=== PATIENT | female | born 1945 | race Caucasian/White ===

== ENCOUNTER 2016-12-27 22:33 | Inpatient (IN) | payer OTHER ==
--- NOTE | ~2016-12-27 | US84 ---
[id number] [facility]. [facility] [address] [place], [place] [address] [id number] I MR#: [id number] Acc #: [id number] NAME: MALI RICHARD : 1945 SEX: F STUDY DATE/TIME: 12/28/2016 12:55 UNIT: C4B ROOM: [facility] STUDY DESCRIPTION: US LE Veins Complete Parminder Stdy Attending Physician: Robert Wagner M.D. Ordering Physician: Rosy Hickey M.D. Primary Care Physician: Freddy Peter M.D. MEDICAL IMAGING REPORT This report is preliminary unless electronic signature is present EXAM Bilateral lower extremity venous duplex DATE OF EXAMINATION 12/28/2016 CLINICAL HISTORY Bilateral lower extremity pain. Right lower extremity worse x4 months. FINDINGS On the right leg, there is phasic spontaneous flow with respiration seen of the common femoral, deep femoral, femoral, popliteal, anterior and posterior tibial, peroneal, saphenous veins. There is compressibility of the vein lumen of all the aforementioned vessels. On the left leg, there is phasic spontaneous flow with respiration seen of the common femoral, deep femoral, femoral, popliteal, anterior and posterior tibial, and saphenous veins. There is compressibility of the vein lumen of all the aforementioned vessels. IMPRESSION No evidence of a DVT of the right or left lower extremity on today's exam. Dictated by... Nikolai Rain M.D. THIS IS AN ELECTRONICALLY VERIFIED REPORT Nikolai Rain M.D. at 01/03/2017 7:25 AM NATALIIA/lacey TD: 12/28/2016 14:52 JOB #: [id number] MEDICAL IMAGING REPORT Page 1 of 1 COPY
--- NOTE | ~2016-12-27 | HP ---
Unit #: [id number] #: [id number] Patient: MALI RICHARD [id number] [facility]. [place] [address] [facility]. [place], [place] [address] [id number] I MR#: [id number] NAME: MALI RICHARD ROOM: 453 Age: 71 Sex: F Admission Date: 12/27/2016 : 1945 Attending Physician: Robert Wagner M.D. Primary Care Physician: Freddy Peter M.D. HISTORY AND PHYSICAL CHIEF COMPLAINT Jaw, neck and should blade tightness. HISTORY OF PRESENT ILLNESS This is a 71-year-old white female with past medical history of gastroesophageal reflux, valvular heart disease, hypertension, hyperlipidemia, osteoarthritis of her knees and heart arrhythmias. She follows with Dr. Peter. She presented to the ER on 12/27 after waking up with some jaw and neck tightness on 12/27 in the a.m. She then developed tightness in between her shoulder blades. She denies that this discomfort got any worse with movement or deep breathing. She had no radiating pain. No nausea. No vomiting. No shortness of breath; however, she was slightly diaphoretic. The pain was constant in nature. When she arrived to the emergency department, she received topical nitroglycerin that did help somewhat to relieve the pain but did not take it completely away. She reports to me she does have chronic palpitations at times due to heart arrhythmia; however, no arrhythmia was seen on telemetry review or EKG. She also reports that lately she has not been sleeping well. She does state that she sleeps with 2-3 pillows. She denies orthopnea, but the pillows are for her acid reflux. She cannot lie flat at night especially if she has eaten a meal. She denies any exertional pain but stated that "something does not feel right." Initial troponin, after presenting to the emergency room, was less than 0.05, and her EKG showed normal sinus rhythm with some Q waves present in the septal leads. Last EKG was in September of 2015, which was normal sinus rhythm. Apparently she had some palpitations, and in September of 2015, she had a Holter monitor, which was normal, and a two-D echo, which showed an EF of 55%, impaired relaxation, mild MR, mild TR, mild AR and normal RVSP. Also, of note, urinalysis done in the ER December 27 showed 3+ leukocytes, urobilinogen of 0.2 and WBC count of 25-50. A urine culture was sent and is pending. Chest x-ray on 12/27 was negative for any acute findings. The patient does tell me that she traveled in a car to [place], [place] back in August of 2016 and, since then, has been having right calf pain. No abnormalities seen on exam. PAST SURGICAL HISTORY None. HOME MEDICATIONS Unit #: [id number] #: [id number] Patient: MALI RICHARD 1. Omeprazole 20 mg daily. 2. MiraLAX as needed for constipation. 3. Irbesartan 150 mg daily. 4. Atenolol 12.5 mg daily. ALLERGIES No known allergies. FAMILY HISTORY Her mother had valvular heart disease and hypertension, and her father at the age of 68 from an VT and a stroke. He apparently had an aneurysm. 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 She is a retired manager surgery. She is and has 3 kids and grandkids. She is a never-smoker. Denies alcohol use. Denies illicit drug use. REVIEW OF SYSTEMS A 12-point review of systems was negative except as noted above in the HPI. PHYSICAL EXAMINATION GENERAL: She appears in no acute distress, is alert and oriented, cooperative. HEENT: Head is normocephalic, atraumatic. Pupils are equal, round and reactive to light and accommodation with extraocular movements intact. NECK: Supple with no JVD noted. No carotid bruits auscultated. LUNGS: Clear to auscultation. SPINE: Slight scoliosis. CARDIOVASCULAR: She is in a regular rate and rhythm with S1, S2 noted. She does have a 3/6 systolic ejection murmur heard best at the apex. EXTREMITIES: She is able to move all extremities. Pulses are palpable. No edema present. SKIN: Skin is warm, dry and pale. VITAL SIGNS: Temperature 98, heart rate 59, respirations 13, blood pressure 117/52. She is 81 kg. Her BMI is 29. DIAGNOSTIC TESTING IMAGING: Chest x-ray on 12/27, which was negative. CARDIOVASCULAR: EKG on 12/27 did show normal sinus rhythm with Q waves in the septal leads. LABORATORY STUDIES: Sodium 139, potassium 3.7, chloride 105, CO2 27, BUN 13, creatinine 0.9, glucose 98. WBC 3, platelet count 137, hemoglobin 12.6, hematocrit 37.6. Total cholesterol 162, triglycerides 41, LDL 101, HDL 53. Urinalysis was positive for 3+ leukocytes and WBCs. IMPRESSION 1. Angina. 2. History of hypertension. 3. Right calf pain. 4. Some valvular heart disease. 5. UTI. 6. Gastroesophageal reflux disease. 7. Abnormal EKG. Unit #: [id number] #: [id number] Patient: MALI RICHARD PLAN We will repeat her troponin and EKG. She has had 2 negative troponins in the ER. She was scheduled for a stress test today; however, her symptoms are concerning for angina, and her troponins have not been drawn 6 hours apart. We will hold off the stress test for now. She will be able to eat heart healthy diet, check a two-D echo to evaluate LV function and her valves. Start her on Lovenox 1 mg/kg b.i.d. We will check labs in the morning, keep her NPO after midnight and proceed with either a stress test or a cardiac cath tomorrow depending on her troponins. A STAT bilateral lower extremity ultrasound to rule out DVT due to her right calf pain. We will start Yosprala 40/81 mg daily for cardiac protection and gastroesophageal reflux disease. She will be admitted under cardiology to telemetry. Lipitor 40 mg will be added to her medications. Further plans status post testing results. Dictated by Yazmin Pruitt APRN for Arturo Najera TD: 12/28/2016 09:45 JOB #: [id number] HISTORY AND PHYSICAL Page 1 of 1 X X HISTORY AND PHYSICAL
--- NOTE | ~2016-12-27 | EKG ---
PATIENT: MALI RICHARD UNIT #: [id number] Ventricular Rate: 60 BPM Atrial Rate: 60 BPM P-R Interval: 156 ms QRS Duration: 76 ms Q-T Interval: 438 ms QTC Calculation(Bezet): 438 ms P [place]: 54 degrees Calculated R [place]: 36 degrees Calculated T [place]: 59 degrees Diagnosis Line: Normal sinus rhythm Diagnosis Line: Cannot rule out Septal infarct , age undetermined Diagnosis Line: Borderline Diagnosis Line: When compared with ECG of 23-SEP-2015 15:21, Diagnosis Line: No significant change was found Diagnosis Line: Confirmed by BERNADINE STRAUSS MD ([id number]) on 12/29/2016 Diagnosis Line: 7:42:46 AM INTERPRETING MD: RICA PADILLA
--- NOTE | ~2016-12-27 | EKG ---
PATIENT: MALI RICHARD UNIT #: [id number] Ventricular Rate: 54 BPM Atrial Rate: 54 BPM P-R Interval: 158 ms QRS Duration: 90 ms Q-T Interval: 462 ms QTC Calculation(Bezet): 438 ms P [place]: 59 degrees Calculated R [place]: 76 degrees Calculated T [place]: 10 degrees Diagnosis Line: Sinus bradycardia Diagnosis Line: Otherwise normal ECG Diagnosis Line: When compared with ECG of 28-DEC-2016 11:03, Diagnosis Line: Nonspecific T wave abnormality now evident in Diagnosis Line: Inferior leads Diagnosis Line: Confirmed by BERNAIDNE STRAUSS MD ([id number]) on 12/31/2016 Diagnosis Line: 7:17:02 AM INTERPRETING MD: RICA PADILLA
--- NOTE | ~2016-12-27 | DS ---
Unit #: [id number] #: [id number] Patient: MALI RICHARD [id number] [address] [address] [id number] I MR#: [id number] NAME: MALI RICHARD ROOM: 554 Age: 71 Sex: F Admission Date: 12/28/2016 : 1945 Discharge Date: 12/29/2016 Attending Physician: Robert Wagner M.D. Primary Care Physician: Freddy Peter M.D. DISCHARGE SUMMARY DISCHARGE DIAGNOSES 1. Chest pain, ruled out for myocardial infarction. 2. Right lower extremity edema with no evidence of deep venous thrombosis on bilateral lower extremity Doppler. 3. Normal coronaries per cardiac catheterization on 12/29/2016. 4. 2D echocardiogram on 12/28/2016 revealed a left ventricular ejection fraction of 65%. Mild left ventricular hypertrophy. 5. History of palpitations with normal Holter monitor September 2015. 6. Mild mitral regurgitation. Mild tricuspid regurgitation. 7. Hypokalemia. 8. Hypertension. 9. Hyperlipidemia. 10. Gastroesophageal reflux disease. 11. Osteoarthritis. DISCHARGE MEDICATIONS 1. Atenolol 25 mg p.o. daily. 2. Omeprazole 40 mg p.o. daily. 3. Valsartan per home dosing. 4. Aspirin 81 mg p.o. daily. HOSPITAL COURSE This is a 71-year-old white female with a past medical history of hypertension, hyperlipidemia, GERD, osteoarthritis, reported cardiac arrhythmias. The patient had a 24 hour Holter monitor in September 2015 which was normal. 2D echocardiogram was completed September 2015 and revealed a left ventricular ejection fraction 55% with impaired left ventricular relaxation and mild mitral regurgitation. The patient [facility] 12[facility]27[facility]2016 with complaints of jaw pain with radiation into the neck, jaw and shoulder. She was admitted for concern for unstable angina. Serial cardiac enzymes were obtained and she ruled out for a myocardial infarction. 2D echocardiogram was ordered and revealed a normal ejection fraction of 65% with mild mitral and tricuspid regurgitation. The patient was placed on therapeutic Lovenox and continued on beta carol and ARB per home dosing. She was recommended to undergo a cardiac catheterization. Prior to the cardiac catheterization, a bilateral lower extremity ultrasound was ordered to rule out DVT and there was some right calf pain and swelling. The ultrasound was negative. The patient underwent the cardiac catheterization on 12/29/2016 which revealed normal coronaries and a normal ejection fraction. She tolerated the procedure well without complication. Calf site is soft without hematoma. Telemetry reveals no sustained arrhythmias. Once vascular checks are completed and she ambulates, she will be discharged home later today in stable condition. Potassium is Unit #: [id number] #: [id number] Patient: MALI RICHARD mildly low and has been supplemented. She has been instructed to follow up with her primary care provider for noncardiac causes of pain. She was also instructed to follow up with Dr. Hickey in six to eight weeks. Post cath instructions have been provided. LABS ON ADMISSION Sodium 139, potassium 3.7, chloride 105, CO2 27, BUN 13, creatinine 0.9, glucose 98, white blood cell count 3, hemoglobin 12.6, hematocrit 37.6. Urinalysis with 3+ leukocytes and white blood cells. Cardiac enzymes negative x2 sets. Fasting lipid profile unremarkable. PHYSICAL EXAMINATION This is a 71-year-old white female in no acute distress. SKIN is warm and dry. NECK is supple. No jugular vein distention. No hepatojugular reflux. Normal carotid upstrokes. No carotid bruits auscultated. HEART - S1 and S2. Regular rate and rhythm. No murmurs, rubs or gallops. LUNGS - bilateral breath sounds have good air entry throughout all lung green. Respirations even and unlabored. No rales, rhonchi or wheezes. ABDOMEN is soft, nontender, nondistended. Positive bowel sounds auscultated x4 quadrants. No ascites noted. EXTREMITIES - bilateral extremities have no pretibial pitting edema. DP and PT pulses 2+. Capillary refill less than three seconds. Right wrist was soft without hematoma. DISCHARGE INSTRUCTIONS 1. The patient will be discharged home today. 2. Follow up with primary care provider in one to two weeks. 3. Follow up with Dr. Hickey in six to eight weeks. Office to call with an appointment. 4. Post cath instructions provided. 5. No new prescriptions ordered. Dictated by... Gillian Blackburn APRN for Arturo Najera TD: 01/10/2017 13:20 JOB #: [id number] DISCHARGE SUMMARY Page 1 of 1 X X DISCHARGE SUMMARY
--- NOTE | ~2016-12-27 | EKG ---
PATIENT: MALI RICHARD UNIT #: [id number] Ventricular Rate: 54 BPM Atrial Rate: 54 BPM P-R Interval: 156 ms QRS Duration: 80 ms Q-T Interval: 468 ms QTC Calculation(Bezet): 443 ms P [place]: 61 degrees Calculated R [place]: 23 degrees Calculated T [place]: 68 degrees Diagnosis Line: Sinus bradycardia Diagnosis Line: Otherwise normal ECG Diagnosis Line: When compared with ECG of 27-DEC-2016 22:34, Diagnosis Line: (unconfirmed) Diagnosis Line: No significant change was found Diagnosis Line: Confirmed by BERNADINE STRAUSS MD ([id number]) on 12/29/2016 Diagnosis Line: 7:45:53 AM INTERPRETING MD: RICA PADILLA
--- NOTE | ~2016-12-27 | CR72 ---
[facility] A Service of [facility] & [facility] RADIOLOGY TEXT RESULTS PATIENT: MALI RICHARD LOCATION: [facility] 453- : [birth year] UNIT #: [id number] AGE: [address]: Robert Wagner MD SEX: F ORDER DR: [id number] [facility] [address] [place], [place] [address] [id number] I MR#: [id number] Acc #: [id number] NAME: MALI RICHARD : 1945 SEX: F STUDY DATE/TIME: 12/27/2016 22:23 UNIT: CEDOF ROOM: [id number] STUDY DESCRIPTION: CR Chest Single View Portable Attending Physician: Robert Wagner M.D. Ordering Physician: Karli Lorenzo M.D. Primary Care Physician: Freddy Peter M.D. MEDICAL IMAGING REPORT This report is preliminary unless electronic signature is present EXAM Chest x-ray, 12/27/2016. HISTORY 71-year-old female in the ED complaining of new onset chest pain and shortness of air beginning earlier today. TECHNIQUE AP portable upright chest series. FINDINGS The exam is negative. The lungs are expanded and clear. Heart size and pulmonary vascularity are normal. No visible pulmonary infiltrate or pleural effusion. IMPRESSION Negative chest. Dictated by... Baldemar Cross M.D. THIS IS AN ELECTRONICALLY VERIFIED REPORT Baldemar Cross M.D. at 12/28/2016 9:53 PM AYAANW/glenna TD: 12/28/2016 06:31 JOB #: [id number] MEDICAL IMAGING REPORT Page 1 of 1 COPY
[~2016-12-27 22:33] MED LIST: ATENOLOL PO; AVALIDE 300-251 TAB PO; BACTRIM DS TABL1 TA1 PO; DICYCLOMINE HCL20 MG PO
[2016-12-27 22:35] LABS: URINE SOURCE CLEAN CATCH
[2016-12-27 22:38] LABS: POC - CKMB <1.0 ng/mL (0.0-7.9); POC - TROPONIN <0.05 ng/mL (<=0.05)
[2016-12-27 22:41] LABS: BASOPHIL% 0.5 % (0-2.5); HEMATOCRIT 37.6 % (35.0-45.0); HEMOGLOBIN 12.6 gm/dL (12.0-16.0); LYMPHOCYTE# 0.8 X10e3 (1.0-3.5); LYMPHOCYTE% 26.5 % (17.0-45.0); MEAN CELL VOLUME 88.5 FL (83-96); MEAN CORPUSCULAR HEMOGLOBIN 29.6 PG (28-34); MEAN CORPUSCULAR HGB CONC 33.5 g/dL (30-36); MEAN PLATELET VOLUME 8.7 FL (6.5-11.5); MONOCYTE# 0.3 X10e3 (0-1.0); MONOCYTE% 8.8 % (3.0-12.0); NEUTROPHIL# 1.9 X10e3 (1.5-7.1); NEUTROPHIL% 64.2 % (40-75); PLATELET COUNT 137 X10e3 (140-420); RED BLOOD COUNT 4.24 X10e (3.90-5.30); RED CELL DISTRIBUTION WIDTH 12.8 % (11.0-15.5)
[2016-12-27 22:44] LABS: DIFF IND NO
[2016-12-27 22:46] LABS: URINE APPEARANCE CLOUDY; URINE BILIRUBIN NEG (NEG); URINE BLOOD NEG (NEG); URINE COLOR YELLOW; URINE GLUCOSE NEG (NEG); URINE KETONE NEG (NEG); URINE LEUKOCYTE ESTERASE 3+ (NEG); URINE NITRATE NEG (NEG); URINE PH 6.5 (5-8); URINE PROTEIN NEG (NEG); URINE SPECIFIC GRAVITY 1.004 (1.003-1.035); URINE UROBILINOGEN 0.2 MG/DL (NEG)
[2016-12-27 22:49] LABS: CULTURE INDICATED? YES; URBCS1 AUWI 0-2 /[HPF] (0-2); URINE BACTERIA AUWI 1+ (NEGATIVE); URINE SQUAMOUS EPITHELIAL CELL OCC /[HPF]; UWBCS1 AUWI 25-50 (0-5)
[2016-12-27 22:53] LABS: INR 1.1; PROTHROMBIN TIME (PATIENT) 11.5 SECONDS (9.6-11.5)
[2016-12-27 23:07] LABS: ALBUMIN SERUM 3.6 g/dL (3.5-5.0); ALKALINE PHOSPHATASE 113 U/L (32-92); ALT (SGPT) 15 U/L (10-40); AMYLASE 27 U/L (0-46); AST (SGOT) 22 U/L (10-42); BILIRUBIN, DIRECT 0.1 mg/dL (0.0-0.2); BILIRUBIN,INDIRECT 0.4 mg/dL (0.0-0.9); BILIRUBIN,TOTAL 0.5 mg/dL (0.2-2.0); BLOOD UREA NITROGEN 13 mg/dL (9-23); BUN/CREATININE RATIO 14.44; CALCIUM SERUM 8.9 mg/dL (8.4-10.2); CARBON DIOXIDE 27 mmol/L (22-31); CHLORIDE 105 mmol/L (100-111); CREATININE SERUM 0.9 mg/dL (0.6-1.4); GLOM FILT RATE Estimated ABOVE60 mL/min (>60); GLUCOSE FASTING 98 mg/dL (70-110); LIPASE 45 U/L (22-51); POTASSIUM 3.7 mmol/L (3.5-5.1); PROTEIN TOTAL SERUM 7.4 g/dL (6.0-8.3); SODIUM 139 mmol/L (135-145)
[2016-12-28 01:54] LABS: POC - CKMB <1.0 ng/mL (0.0-7.9); POC - TROPONIN <0.05 ng/mL (<=0.05)
[2016-12-28 06:23] LABS: CHOLESTEROL 162 mg/dL (0-200); HDL CHOLESTEROL 53 mg/dL (35-95); LDL CHOLESTEROL 101 mg/dL (-130); LDL/HDL RATIO 2 RATIO (0-4); TRIGLYCERIDES 41 mg/dL (10-160)
[2016-12-28] MEDS ORDERED: OMEPRAZOLE20 M2 PO (06:38)
[2016-12-28] MEDS ORDERED: ATENOLOL25 MG PO (06:39)
[2016-12-28] MEDS ORDERED: AVAPRO150 MG PO (06:40)
[2016-12-28 13:11] LABS: %MB 2.2 % (0.0-4.0); MB 1.7 ng/ml
[2016-12-28 17:52] LABS: %MB 2.3 % (0.0-4.0)
[2016-12-28 23:49] LABS: %MB 2.2 % (0.0-4.0); MB 2.1 ng/ml
[2016-12-29 04:14] LABS: BASOPHIL% 0.7 % (0-2.5); HEMATOCRIT 33.4 % (35.0-45.0); HEMOGLOBIN 11.3 gm/dL (12.0-16.0); LYMPHOCYTE# 1.2 X10e3 (1.0-3.5); LYMPHOCYTE% 39.7 % (17.0-45.0); MEAN CELL VOLUME 87.4 FL (83-96); MEAN CORPUSCULAR HEMOGLOBIN 29.5 PG (28-34); MEAN CORPUSCULAR HGB CONC 33.7 g/dL (30-36); MEAN PLATELET VOLUME 8.7 FL (6.5-11.5); MONOCYTE# 0.3 X10e3 (0-1.0); MONOCYTE% 10.4 % (3.0-12.0); NEUTROPHIL# 1.5 X10e3 (1.5-7.1); NEUTROPHIL% 49.2 % (40-75); PLATELET COUNT 117 X10e3 (140-420); RED BLOOD COUNT 3.81 X10e (3.90-5.30)
[2016-12-29 04:16] LABS: DIFF IND NO
[2016-12-29 04:20] LABS: INR 1.1; PROTHROMBIN TIME (PATIENT) 12.1 SECONDS (9.6-11.5)
[2016-12-29 04:46] LABS: BUN/CREATININE RATIO 12.85; CALCIUM SERUM 8.3 mg/dL (8.4-10.2); CREATININE SERUM 0.7 mg/dL (0.6-1.4); GLOM FILT RATE Estimated 88.4 mL/min (>60); MAGNESIUM 1.9 mg/dL (1.6-3.0); POTASSIUM 3.4 mmol/L (3.5-5.1)
== END 2016-12-29 18:45 | disposition home or self-care (01) | DRG 287 ==
LOC: CED 22:33 → CEDOF 12-28 03:35 → C4B 12-28 09:12 → C5B 12-29 11:36
PROVIDERS: Emergency Medicine; Internal Medicine Advanced Heart Failure and Transplant Cardiology; Internal Medicine Cardiovascular Disease; Nurse Practitioner
PROC: B24BYZZ Ultrasonography of Heart with Aorta using Other Contrast (ICD-10-PCS; 2016-12-28)
PROC: 4A023N7 Measurement of Cardiac Sampling and Pressure, Left Heart, Percutaneous Approach (ICD-10-PCS; principal; 2016-12-29)
PROC: B211YZZ Fluoroscopy of Multiple Coronary Arteries using Other Contrast (ICD-10-PCS; 2016-12-29)
PROC: B215YZZ Fluoroscopy of Left Heart using Other Contrast (ICD-10-PCS; 2016-12-29)
DX: R07.9 Chest pain, unspecified (principal); I08.1 Rheumatic disorders of both mitral and tricuspid valves; I10 Essential (primary) hypertension; N39.0 Urinary tract infection, site not specified; M79.604 Pain in right leg; K21.9 Gastro-esophageal reflux disease without esophagitis; R94.31 Abnormal electrocardiogram [ECG] [EKG]; E78.5 Hyperlipidemia, unspecified; M17.0 Bilateral primary osteoarthritis of knee
CPT/HCPCS: 36415; 71010; 80048; 80061; 80076; 81003; 82150; 82550; 82553; 83690; 83735; 84443; 84484; 85025; 85610; 85730; 87086; 93005; 93306; 93970; 99285; C1769; C1887; C1894; J1200; J1644; J1650; J2250; J2930; J3010

== ENCOUNTER → 2017-02-02 | Outpatient (CLI) | payer OTHER ==
[~2017-02-02] MED LIST changes: +ATENOLOL25 MG PO; +AVAPRO150 MG PO; +OMEPRAZOLE20 M2 PO
--- NOTE | ~2017-02-02 | CR181 ---
[facility] A Service of [facility] & [facility] RADIOLOGY TEXT RESULTS PATIENT: AMLI RICHARD LOCATION: [facility] : 47 UNIT #: [id number] AGE: [address]: Yvon Mack MD SEX: F ORDER DR: [id number] [facility] [address] [place], [place] [address] [id number] O MR#: [id number] Acc #: [id number] NAME: MALI RICHARD : 1945 SEX: F STUDY DATE/TIME: 02/02/2017 17:34 UNIT: [facility] ROOM: STUDY DESCRIPTION: CR Lumbar Spine 2 or 3 Views Attending Physician: Yvon Mack M.D. Referring Physician: Yvon Mack M.D. Ordering Physician: Yvon Mack M.D. Primary Care Physician: Freddy Peter M.D. MEDICAL IMAGING REPORT This report is preliminary unless electronic signature is present EXAM Lumbar spine, [address] abdomen and pelvis dated May 31, 2013. INDICATIONS A 71-year-old female with low back pain radiating into the left leg for 1 week. FINDINGS There is diffuse osteopenia. There is lumbar dextroscoliosis. There are bulky marginal nearly bridging osteophytes at L2-L3. Multilevel marginal osteophytes of the lumbar spine are seen elsewhere. Degenerative endplate sclerosis is seen L4-L5, L5-S1. There is apparent disc height loss at these levels as well, and there is apparent disc height loss at L2-L3. Degenerative facet disease is present at L4-L5 and L5-S1. Bridging calcification of the lower thoracic spine is noted. Anterior osteophytes are also present L1-L2. There is grade 1 retrolisthesis of L2 on L3, likely degenerative in nature. No evidence of acute fracture. A CT of 2012 noted severe bony neural foraminal narrowing bilaterally at L5-S1 due to posterior disc osteophyte complex. This is not well assessed on the current radiograph. IMPRESSION 1. No evidence acute fracture of the lumbar spine. There is grossly stable scoliosis with grossly stable multilevel degenerative disc height loss. There is grossly stable grade 1 retrolisthesis of L2 on L3, likely degenerative in nature. [facility]. [facility] A Service of [facility] & [facility] RADIOLOGY TEXT RESULTS PATIENT: MALI RICHARD LOCATION: [facility] : 47 UNIT #: [id number] AGE: [address]: Yvon Mack MD SEX: F ORDER DR: 2. Not as well appreciated on current study but seen on CT of 2012, there is severe bilateral neural foraminal narrowing at L5-S1 due to posterior disc osteophyte complex. Dictated by... Rosales Irwin M.D. THIS IS AN ELECTRONICALLY VERIFIED REPORT Rosales Irwin M.D. at 02/05/2017 2:38 PM Eri TD: 02/02/2017 22:22 JOB #: [id number] MEDICAL IMAGING REPORT Page 1 of 1 COPY
== END | disposition home or self-care (01) ==
LOC: CRAD 17:02
DX: M54.5 Low back pain (principal); M41.9 Scoliosis, unspecified; M51.36 Other intervertebral disc degeneration, lumbar region; M43.16 Spondylolisthesis, lumbar region; M25.78 Osteophyte, vertebrae
CPT/HCPCS: 72100

== ENCOUNTER 2017-02-21 19:48 | Emergency (ER) | payer OTHER ==
--- NOTE | ~2017-02-21 | CR72 ---
[facility] A Service of [facility] & [facility] RADIOLOGY TEXT RESULTS PATIENT: MALI RICHARD LOCATION: [facility] : 47 UNIT #: [id number] AGE: [address]: Ivan Buchanan MD SEX: F ORDER DR: [id number] [facility] [address] [place], [place] [address] [id number] E MR#: [id number] Acc #: [id number] NAME: MALI RICHARD : 1945 SEX: F STUDY DATE/TIME: 02/22/2017 01:34 UNIT: [facility] ROOM: STUDY DESCRIPTION: CR Chest Single View Portable Attending Physician: Ivan Buchanan M.D. Ordering Physician: Vincent Hopkins D.O. Primary Care Physician: Freddy Peter M.D. MEDICAL IMAGING REPORT This report is preliminary unless electronic signature is present EXAM Portable chest, 02/22 01:34 INDICATIONS Chest pain on the left side that started yesterday. Shortness of air. FINDINGS AP portable views of the chest compared with 12/27/2016. Cardiac and mediastinal contours are normal. There is atherosclerotic disease in the aorta. Lungs are clear. There is no pneumothorax. IMPRESSION No active disease. Dictated by... Fadi Sr Jr., M.D. THIS IS AN ELECTRONICALLY VERIFIED REPORT Fadi Sr Jr., M.D. at 02/22/2017 6:02 AM BINA/rachel TD: 02/22/2017 03:43 JOB #: [id number] MEDICAL IMAGING REPORT Page 1 of 1 COPY
--- NOTE | ~2017-02-21 | CT4 ---
[facility] A Service of [facility] & [facility] RADIOLOGY TEXT RESULTS PATIENT: MALI RICHARD LOCATION: [facility] UNIT : 49 UNIT #: [id number] AGE: [address]: Ivan Buchanan MD SEX: F ORDER DR: [id number] [facility] [address] [place], [place] [address] [id number] E MR#: [id number] Acc #: [id number] NAME: MALI RICHARD : 1945 SEX: F STUDY DATE/TIME: 02/22/2017 02:50 UNIT: YELITZA ROOM: STUDY DESCRIPTION: CT Abd and Pelv Wo Cont Attending Physician: Ivan Buchanan M.D. Ordering Physician: Vincent Hopkins D.O. Primary Care Physician: Freddy Peter M.D. MEDICAL IMAGING REPORT This report is preliminary unless electronic signature is present EXAM Abdomen and pelvis CT 02/22 02:50 INDICATIONS Abdominal pain and diarrhea that started today. TECHNIQUE Axial images were obtained through the abdomen and pelvis without contrast. Multiplanar reformats were obtained. Comparison made with 05/31/2013. This CT exam was performed with one or more of the following radiation dose reduction techniques: automatic exposure control, adjustment of mA and/or kV according to patient size, and iterative reconstruction. FINDINGS Abdomen: Lung bases are clear. The gallbladder contains a few small stones but is otherwise normal. No biliary obstruction is seen. No renal or ureteral stones are identified. No hydronephrosis is seen. The unenhanced solid organs are normal. The unopacified GI tract is normal. No free fluid is seen. Pelvis: There are no lower ureteral stones. The bladder is within normal limits. Uterus is surgically absent. Scattered colonic diverticula are seen, but no diverticulitis is identified. Incidental note is made of a lipoma at the ileocecal valve. The unopacified GI tract is otherwise normal. The appendix is not clearly identifiable, but there is no acute appendicitis identified. There is diffuse lumbar degenerative disease. IMPRESSION 1. No renal or ureteral stones. No hydronephrosis. 2. Colonic diverticulosis without diverticulitis. The rest of the unopacified GI tract is within normal limits. The appendix is not STS. [facility] A Service of [facility] & [facility] RADIOLOGY TEXT RESULTS PATIENT: MALI RICHARD LOCATION: [facility] UN[facility] : 49 UNIT #: [id number] AGE: [address]: Ivan Buchanan MD SEX: F ORDER DR: clearly seen but there is no evidence of appendicitis. 3. Uncomplicated cholelithiasis. 4. Hysterectomy. Dictated by... Fadi Sr Jr., M.D. THIS IS AN ELECTRONICALLY VERIFIED REPORT Fadi Sr Jr., M.D. at 02/22/2017 10:13 PM BINA/roshan TD: 02/22/2017 06:10 JOB #: [id number] MEDICAL IMAGING REPORT Page 1 of 1 COPY
[2017-02-22 01:48] LABS: URINE SOURCE CLEAN CATCH
[2017-02-22 01:53] LABS: URINE APPEARANCE CLEAR; URINE BILIRUBIN NEG (NEG); URINE BLOOD NEG (NEG); URINE COLOR YELLOW; URINE GLUCOSE NEG (NEG); URINE KETONE NEG (NEG); URINE LEUKOCYTE ESTERASE 2+ (NEG); URINE NITRATE NEG (NEG); URINE PH 5.5 (5-8); URINE PROTEIN NEG (NEG); URINE SPECIFIC GRAVITY 1.008 (1.003-1.035)
[2017-02-22 01:53] LABS: BASOPHIL% 0.4 % (0-2.5); DIFF IND NO; HEMATOCRIT 39.9 % (35.0-45.0); HEMOGLOBIN 13.4 gm/dL (12.0-16.0); LYMPHOCYTE% 25.8 % (17.0-45.0); MEAN CELL VOLUME 88.8 FL (83-96); MEAN CORPUSCULAR HEMOGLOBIN 29.8 PG (28-34); MEAN CORPUSCULAR HGB CONC 33.6 g/dL (30-36); MEAN PLATELET VOLUME 8.8 FL (6.5-11.5); MONOCYTE# 0.3 X10e3 (0-1.0); NEUTROPHIL# 2.5 X10e3 (1.5-7.1); NEUTROPHIL% 65.8 % (40-75); PLATELET COUNT 120 X10e3 (140-420); RED CELL DISTRIBUTION WIDTH 13.4 % (11.0-15.5); WHITE BLOOD COUNT 3.8 X10e3 (4.0-10.5)
[2017-02-22 01:56] LABS: CULTURE INDICATED? YES; URBCS1 AUWI 0-2 /[HPF] (0-2); URINE BACTERIA AUWI NEG (NEGATIVE); URINE SQUAMOUS EPITHELIAL CELL NONE SEEN /[HPF]
[2017-02-22 02:06] LABS: INR 1.1; PARTIAL THROMBOPLASTIN TIME 25.9 SECONDS (23.5-31.3); PROTHROMBIN TIME (PATIENT) 11.6 SECONDS (9.6-11.5)
[2017-02-22 02:25] LABS: ALBUMIN SERUM 4.1 g/dL (3.5-5.0); BILIRUBIN, DIRECT 0.1 mg/dL (0.0-0.2); BILIRUBIN,INDIRECT 0.8 mg/dL (0.0-0.9); BILIRUBIN,TOTAL 0.9 mg/dL (0.2-2.0); BUN/CREATININE RATIO 17.5; CALCIUM SERUM 9.1 mg/dL (8.4-10.2); CREATININE SERUM 0.8 mg/dL (0.6-1.4); GLOM FILT RATE Estimated 75.3 mL/min (>60); POTASSIUM 3.3 mmol/L (3.5-5.1); PROTEIN TOTAL SERUM 7.5 g/dL (6.0-8.3)
[2017-02-22 02:51] LABS: POC - CKMB <1.0 ng/mL (0.0-7.9); POC - TROPONIN <0.05 ng/mL (<=0.05)
== END 2017-02-22 04:20 | disposition home or self-care (01) ==
LOC: CED 19:48
PROVIDERS: Emergency Medicine
DX: R10.9 Unspecified abdominal pain (principal); R19.7 Diarrhea, unspecified; Z91.041 Radiographic dye allergy status; Z79.899 Other long term (current) drug therapy
CPT/HCPCS: 71010; 74176; 80048; 80076; 81003; 82553; 83690; 84484; 85025; 85610; 85730; 87086; 87088; 99284

== ENCOUNTER → 2017-03-02 | Outpatient (CLI) | payer OTHER ==
--- NOTE | ~2017-03-02 | NM22 ---
[facility] A Service of [facility] & [facility] RADIOLOGY TEXT RESULTS PATIENT: MALI RICHARD LOCATION: [facility] : 49 UNIT #: [id number] AGE: [address]: Freddy Peter MD SEX: F ORDER DR: [id number] [facility] [address] [place], [place] [address] [id number] O MR#: [id number] Acc #: [id number] NAME: MALI RICHARD : 1945 SEX: F STUDY DATE/TIME: 03/02/2017 11:20 UNIT: [facility] ROOM: STUDY DESCRIPTION: JEANETTE Hepatobiliary W GB Pharm Attending Physician: Freddy Peter M.D. Referring Physician: Freddy Peter M.D. Ordering Physician: Freddy Peter M.D. Primary Care Physician: Freddy Peter M.D. MEDICAL IMAGING REPORT This report is preliminary unless electronic signature is present EXAM HIDA scan with Kinevac CCK 03/02/2017 HISTORY Epigastric abdominal pain radiating to the back. Gastroesophageal reflux for 1 year. Intermittent diarrhea and constipation, abdominal bloating. CT scan of the abdomen and pelvis 02/22/2017 demonstrated cholelithiasis. FINDINGS The patient received an intravenous injection of 5.65 mCi of technetium 99m tagged Choletec for hepatobiliary imaging. 1 hour following injection of the radiopharmaceutical the patient received intravenous injection of 1.5 mcg of Kinevac. There is homogeneous distribution of the radiotracer throughout the liver. Gallbladder activity was seen by 30 minutes postinjection of the radiopharmaceutical. Following Kinevac injection the gallbladder ejection fraction was 93.2% (normal is greater than 30%). IMPRESSION Normal HIDA scan with gallbladder ejection fraction of 93.2%. Dictated by... Vlad Lerma M.D. THIS IS AN ELECTRONICALLY VERIFIED REPORT Vlad Lerma M.D. at 03/02/2017 4:31 PM MADDY/yakelin TD: 03/02/2017 15:26 JOB #: [id number] MEDICAL IMAGING REPORT Page 1 of 1 COPY
== END | disposition home or self-care (01) ==
LOC: CNUC 10:33
DX: K80.20 Calculus of gallbladder without cholecystitis without obstruction (principal)
CPT/HCPCS: 78227; A9537; J2805